=== PATIENT | female | born 1955 | race Caucasian/White ===

== ENCOUNTER 2022-04-23 13:18 | Emergency (ER) | payer MEDICARE, SELFPAY ==
--- NOTE | ~2022-04-23 | XR_ITS ---
Indication: Pain, evaluate for fracture EXAMINATION: Lumbar spine and thoracic spine. Comparison chest film dated 05/12/2019 2 views of the thoracic spine demonstrate degenerative change. Most noted in the mid thoracic region. Kyphosis is created. No convincing evidence for an acute compression injury. Correlation however needs to be made clinically. Note is made of a prominent right hilar structure of uncertain etiology. Consider chest film to further evaluate 3 views of the lumbar sacral spine demonstrate normal lordosis. There is degeneration in the posterior elements likely present at L4-5 and L5-S1. Loss of disc height at L5-S1. The other disc and vertebral heights are fairly well-preserved here. No listhesis or compression injury is seen. XR/XR thoracic spine 3V IMPRESSION: Some degeneration in the lower lumbar sacral spine. No listhesis or compression injury. Moderate degeneration in the mid thoracic spine with kyphosis created. No convincing evidence of acute compression injury. Note is made of a prominent right hilar structure. Recommend PA and lateral films of the chest to directly compare to previous chest study
--- NOTE | ~2022-04-23 | XR_ITS ---
Indication: Pain, evaluate for fracture EXAMINATION: Lumbar spine and thoracic spine. Comparison chest film dated 05/12/2019 2 views of the thoracic spine demonstrate degenerative change. Most noted in the mid thoracic region. Kyphosis is created. No convincing evidence for an acute compression injury. Correlation however needs to be made clinically. Note is made of a prominent right hilar structure of uncertain etiology. Consider chest film to further evaluate 3 views of the lumbar sacral spine demonstrate normal lordosis. There is degeneration in the posterior elements likely present at L4-5 and L5-S1. Loss of disc height at L5-S1. The other disc and vertebral heights are fairly well-preserved here. No listhesis or compression injury is seen. XR/XR lumbar spine 2-3V IMPRESSION: Some degeneration in the lower lumbar sacral spine. No listhesis or compression injury. Moderate degeneration in the mid thoracic spine with kyphosis created. No convincing evidence of acute compression injury. Note is made of a prominent right hilar structure. Recommend PA and lateral films of the chest to directly compare to previous chest study
[2022-04-23 13:30] VITALS: BP 148/95; BP 149/106; PULSE 110; PULSE 95; RESP 16; TEMP 37.3; O2SAT 97; O2SAT 98; BMI 31.2
--- NOTE | 2022-04-23 14:25 | ED_ITS ---
HPI - General Adult General Chief complaint: Back Pain/Injury Stated complaint: BACK PAIN, COVID + Time Seen by Provider: 04/23/22 13:27 Source: patient Mode of arrival: ambulatory Limitations: no limitations History of Present Illness HPI narrative: 67-year-old female with history of remission lung cancer and recent COVID positive as of Tuesday presents to ED for back pain. Patient states she was helping her mother who fell off the bed and while trying to car pick up driver her mother she heard a crack in her back. Patient states since then having pain on ambulation. Patient denies any blunt trauma to the back, falling to the ground, or hitting head. Patient denies any abdominal pain, nausea, vomiting, flank pain, fever, chills. Patient states no dysuria or hematuria. Patient states back pain is worse on movement. Patient denies any chest pain, shortness of breath, pleurisy, leg swelling, calf pain, coughing up blood, weakness, dizziness, or passing out Related Data Previous Rx's Medication Instructions Recorded cyclobenzaprine 10 mg tablet 10 mg PO TID PRN muscle spasm 7 04/23/22 days #21 tabs ketorolac 10 mg tablet 10 mg PO QID PRN pain 5 days #20 04/23/22 tabs prednisone 20 mg tablet 40 mg PO DAILY 5 days #10 tabs 04/23/22 Allergies Allergy/AdvReac Type Severity Reaction Status Date / Time ciprofloxacin Allergy Unknown Verified 12/28/17 00:00 No Known Allergies Allergy Unverified 05/22/20 15:15 [No Known Allergies*] Review of Systems Review of Systems: Back pain Yes all other systems are reviewed and are negative PMFSH Social History Social History Advance Directives: No Advance Directives Information Provided: No Physical Exam ED Vital Signs: Vital Signs - 24 hr 04/23/22 13:30 Temperature 99.1 F Pulse Rate 95 Respiratory Rate 16 Blood Pressure 148/95 H Pulse Oximetry 97 Oxygen Delivery Method Room Air BMI result Body Mass Index 31.2 Const General: cooperative, healthy appearing, comfortable, no acute distress, well developed, alert, awake and Physically active Orientation/consciousness: oriented to time and patient oriented x3 HENMT Head: Yes normal to inspection, Yes No palpable skull fracture present, Yes normocephalic, Yes atraumatic and No abrasion Eyes General: appearance normal, both eyes and all related structures Neck Neck: Yes normal visual inspection, Yes full ROM, Yes no lymphadenopathy, Yes no meningeal signs, Yes trachea midline, Yes supple, No anterior neck swelling and No tender Chest Chest palpation & inspection: normal inspection of the chest and normal palpation of entire chest wall Resp Effort & Inspection: normal respiratory effort and able to speak in complete sentences Auscultation: clear to auscultation bilaterally Cardio Jugular venous distension: no JVD Heart sounds: S1 normal heart sound present and S2 normal heart sound present GI Inspection: Yes normal to inspection and No abdominal wall ecchymosis Palpation (GI): Soft to palpation, not firm, nontender, no guarding and not rigid General: No CVA tenderness and Yes no CVA tenderness Back/Spine/Pelvis Back: no CVA tenderness, No CVA tenderness and back tenderness (thoracic tenderness on palpation. ) Skin General skin exam: no rashes or lesions noted and elasticity normal Neuro General: oriented to time, patient oriented x3, gait normal, no meningeal signs and CN's II-XI intact bilaterally Cranial nerves: Yes CN's II-XII intact bilaterally Extrem General: Yes normal to inspection and Yes full ROM Psych Appearance: grossly normal, well kempt and not disheveled Course Course Course Narrative: Due to history of breast cancer in the past was sent for x-ray to make sure there is no spine fracture and spine Mets. Patient states her cancer was remission but has not follow-up with the cancer doctor and for years due to lack of insurance Reevaluation(s) Reevaluation #1: X-ray negative for fractures. Negative for mental status of the spine. Patient is safe for discharge. Patient given copy of x-ray which included lungs with said right hilliar structure. Time: 15:40 Medical Decision Making [facility] Narrative Medical decision making narrative: Back sprain Discharge Plan Discharge Clinical Impression: Back strain Patient Disposition: Home, Self-Care Instructions: Low Back Strain (ED) Additional Instructions: X-rays came back negative for fractures. Please follow-up with the primary care provider. Return to the ED immediately for any urinary/bowel incontinence, chest pain, shortness of breath, coughing up blood, chest pain on inspiration, dysuria, hematuria, abdominal pain, flank pain, fever, chills, paralysis of lower extremities, tingling, or any other concerning symptoms. Prescriptions: New prednisone 20 mg tablet 40 mg PO DAILY 5 Days Qty: 10 0RF ketorolac 10 mg tablet 10 mg PO QID PRN (Reason: pain) 5 Days Qty: 20 0RF Rx Instructions: patient received 30mg IM toradol in the ED cyclobenzaprine 10 mg tablet 10 mg PO TID PRN (Reason: muscle spasm) 7 Days Qty: 21 0RF Rx Instructions: side effect is drowsiness. Do not take at work or while driving. Stand Alone Forms: Work/School Release Discharge Date/Time: 04/23/22 16:11 Print Language: Georgian
[2022-04-23] MEDS: oxyCODONE HCl Immed Release 5 MG TABLET PO (14:27)
[2022-04-23] MEDS: Ketorolac Tromethamine 30 MG/ML VIAL IM (14:28)
== END 2022-04-23 16:11 | disposition home or self-care (01) ==
PROVIDERS: Emergency Provider Student in an Organized Health Care Education/Training Program
DX: U07.1 COVID-19 (principal); M54.50 Low back pain, unspecified; M54.6 Pain in thoracic spine
CPT/HCPCS: 72072; 72100; 96372; 99282; 99284; J1885

== ENCOUNTER 2023-06-07 12:52 | Inpatient (IN) | payer MEDICARE, SELFPAY ==
--- NOTE | ~2023-06-07 | CT_ITS ---
EXAMINATION: CT ANGIOGRAM OF THE CHEST WITH AND WITHOUT CONTRAST (CT PULMONARY ANGIOGRAM FOR PE) CLINICAL INFORMATION: Reason for Exam SOB, history of lobectomy and lung CA, rule out PE COMPARISON: 12/20/2018. TECHNIQUE: Prior to contrast administration, noncontrast localization images were obtained. Subsequently, multidetector volumetric imaging was performed from the thoracic inlet to below the diaphragms following the administration of 130 mL Omnipaque 350 intravenous contrast. No contrast reaction reported Sagittal, coronal, and MIP oblique sagittal reformatted images were obtained on the CT workstation, uploaded to PACS, and reviewed. This CT examination was performed using dose optimization techniques as appropriate, variously including the following: *Automated exposure control *Adjustment of mA and/or kV according to patient size (this includes techniques or standardized protocols for targeted exams where dose is matched to indication/reason for exam; i.e. extremities or head) *Use of iterative reconstruction technique Total exam dose-length product 461 mGy-cm FINDINGS: QUALITY OF STUDY/CONTRAST BOLUS: Satisfactory. PULMONARY ARTERIES: No pulmonary emboli. THORACIC AORTA: The ascending aorta is dilated up to 4.3 cm LUNG: There is upper lobe predominant emphysematous change. There is minimal scarring at the lung bases. There is no active infiltrate. PLEURA: No pleural effusion or pneumothorax. MEDIASTINUM: Normal heart size. No pericardial effusion. No hilar or mediastinal lymphadenopathy. No evidence of septal bowing or right heart strain. CORONARY ARTERY CALCIFICATION: None visualized on this study. CHEST WALL/AXILLA: No axillary or internal mammary lymphadenopathy. OSSEOUS STRUCTURES: No acute or suspicious osseous abnormality. UPPER ABDOMEN: The liver is of diminished attenuation. No reflux of contrast into the hepatic veins to suggest elevated right heart pressures. CT/CT angio chest PE protocol IMPRESSION: No evidence for pulmonary embolism. Ascending aortic dilatation up to 4.3 cm. Emphysema. Fatty infiltration of the liver. VTE: Negative.
--- NOTE | ~2023-06-07 | XR_ITS ---
EXAMINATION: XR CHEST CLINICAL INFORMATION: Chest pain and shortness of breath COMPARISON: TECHNIQUE: Frontal view of the chest was obtained. FINDINGS: No significant abnormality is noted involving the heart, lungs, mediastinum, bony thorax or soft tissues. XR/XR chest 1V IMPRESSION: No acute process or interval change
--- NOTE | 2023-06-07 12:54 | ED.GENADULT ---
HPI - General Adult General Chief complaint: Dyspnea Stated complaint: Diff breathing/UTI Time Seen by Provider: 06/07/23 23:46 Source: patient Mode of arrival: ambulatory Limitations: no limitations History of Present Illness HPI narrative: A 68-year-old female came in for evaluation of shortness of breath, chest heaviness, coughing with phlegm, subjective fever, and chills. Patient was exposed to a sick contact with similar symptoms. Patient also been having dysuria and frequency urination. Related Data Previous Rx's Medication Instructions Recorded cyclobenzaprine 10 mg tablet 10 mg PO TID PRN muscle spasm 7 04/23/22 days #21 tabs ketorolac 10 mg tablet 10 mg PO QID PRN pain 5 days #20 04/23/22 tabs prednisone 20 mg tablet 40 mg (2 x 20 mg) PO DAILY 5 days 04/23/22 #10 tabs Allergies Allergy/AdvReac Type Severity Reaction Status Date / Time ciprofloxacin Allergy Unknown Unknown Verified 06/07/23 12:54 Review of Systems Review of Systems: All other systems are reviewed and are negative Constitutional: Reports as per HPI and Reports no additional constitutional complaints Eyes: Reports as per HPI and Reports no additional eye complaints Reports system reviewed and no additional complaints, except as documented Cardiovascular: Reports as per HPI and Reports no additional cardiovascular complaints Respiratory: Reports as per HPI and Reports no additional respiratory complaints Gastrointestinal: Reports as per HPI and Reports no additional gastrointestinal complaints Genitourinary: Reports no additional female genitourinary complaints Musculoskeletal: Reports no additional musculoskeletal complaints Skin/Breast: Reports system reviewed and no additional complaints, except as docu Psychiatric: Reports no additional psychiatric complaints Endocrine: Reports no additional endocrine complaints Hematologic/Lymphatic: Reports no additional hematologic/lymphatic complaints Allergic/Immunologic: Reports no additional allergic/immunologic complaints Reports system reviewed and no additional complaints, except as documented and Reports Abnormal speech present [facility] Social History Social History Advance Directives: No Advance Directives Information Provided: No Physical Exam ED Vital Signs: Vital Signs - 24 hr 06/07/23 12:55 06/07/23 19:38 06/08/23 01:28 Temperature 98.0 F 98.3 F 97.9 F Pulse Rate 96 99 108 H Respiratory Rate 22 H 22 H 17 Blood Pressure 134/96 H 148/108 H 145/97 H Pulse Oximetry 99 94 90 L Oxygen Delivery Method Room Air Room Air Room Air BMI result Body Mass Index 30.3 Vital signs have been reviewed and appear to be correct. Blood pressure elevated. Heart rate normal. Respiratory rate normal. Temperature normal. Oxygen saturation normal. Appearance: Alert. Oriented X3. No acute distress. Head: Normal external exam. Normocephalic. Atraumatic. No Vazquez signs noted. No raccoon eyes noted Eyes: PERRLA. EOMI. Conjunctiva and sclera normal. Eyelids normal. ENT: TM's Normal. Pharynx normal. Uvula midline. Moist mucous membranes. No trismus noted. No drooling noted. No muffled voice noted. Neck: Normal inspection. Neck supple. FROM. No adenopathy. Thyroid Normal. No meningeal signs. No neck mass noted. CVS: Normal heart rate and rhythm. Heart sound normal. No murmurs noted. Pulses normal throughout. Respiratory: No respiratory distress. Painless inspiration. Breath sounds normal. No wheezes/rales/rhonchi noted. Chest nontender. No accessory muscle usage noted or decreased air movement noted. Abdomen: Soft and nontender. Bowel sounds normal in all 4 quadrants. No distention noted. No organomegaly noted. No visible injury noted. Back: No CVA tenderness. Full range of motion noted. Skin: Skin warm and dry. Normal skin color. Normal skin turgor. No rashes/lesions/lacerations noted. Extremities: No lower extremity edema. Extremities exhibit normal range of motion. Extremities nontender. Neuro: Oriented X 3. Cranial nerve exam: II-XII are grossly intact No motor deficit. No sensory deficit. Reflexes normal. Course Course Course Narrative: This is an RME: Additional HPI, ROS, PE not included below will be deferred to primary provider. 68 y o female PMH lung cancer s/p lobectomy 7 years ago presenting for difficulty breathing x3 days. Feels like its settling in my chest . +Sick contacts. Reporting subjective fever, chills, chest pain described as heavy and R flank pain. Increased urinary frequency and dysuria. Plan -- UA, viral testing, labs Reeval 1937- elevated white blood cell count, patient states she feels worse. No urine yet. This could be viral. Reevaluation(s) Reevaluation #1: 68-year-old female came in with dyspnea, CP, urinary tract symptoms found to have leukocytosis of 19,000 and meet criteria for SIRS. 1. Patient received ceftriaxone for UTI. 2. Awaiting for CTA to rule out PE case signed out to Dr. Downey to check on result. -CT scan for pulmonary embolism is negative for PE -Dr. Farrell recommends admission for UTI sepsis. -discussed the patient with Dr. Bronson, patient being admitted. Time: 01:51 Medications Administered Discontinued Medications Generic Name Dose Route Start Last Admin Trade Name Freq PRN Reason Stop Dose Admin Albuterol Sulfate 2.5 mg 06/08/23 00:22 06/08/23 01:03 Albuterol Sulfate (0.083%) 2.5 Mg/3 Ml Vial.Neb INHALE 06/08/23 00:23 2.5 mg ONCE ONE Administration Ceftriaxone Sodium 1 gm/ 50 mls @ 100 mls/hr 06/07/23 23:56 06/08/23 01:21 Sodium Chloride IV 06/08/23 00:25 Infused ONCE ONE Infusion Sodium Chloride 1,000 mls @ 999 mls/hr 06/08/23 00:09 06/08/23 01:21 Ns IV 06/08/23 01:09 Infused .Q1H1M ONE Infusion Iohexol 130 ml 06/08/23 01:14 06/08/23 01:16 Iohexol 350 Mg/Ml 150 Ml Infus..Btl IV 06/08/23 01:15 130 ml ONCE ONE Administration Methylprednisolone Sodium Succinate 125 mg 06/07/23 23:56 06/08/23 00:19 Methylprednisolone Sod Succ 125 Mg/2 Ml Vial IVPUSH 06/07/23 23:57 125 mg ONCE ONE Administration Medical Decision Making Differential Diagnosis Differential Diagnoses: The differential diagnosis associated with the presentation includes (Pneumonia, pneumothorax, pleural effusion, CHF, ACS, pulmonary embolism, UTI, pyelonephritis.) Admission/Observation Consideration of admission/observation: Escalation of care including admission/observation considered Lab Data MDM Lab Attestation statement: I reviewed the patient's lab results. 06/07/23 13:11 06/07/23 13:11 Labs: Lab Results 06/07/23 06/07/23 06/08/23 Range/Units 13:11 20:24 01:19 WBC 19.5 H (4.8-10.8) X10*3/uL RBC 5.13 (4.20-5.50) X10*6/uL Hgb 15.2 (12.0-16.0) g/dl Hct 45.4 (37.0-47.0) % MCV 88.5 (80.0-98.0) fL MCH 29.6 (27.0-33.0) pg MCHC 33.5 (31.0-35.0) g/dl RDW 13.6 (11.0-16.0) % Plt Count 269 (160-400) X10*3/uL MPV 9.9 (9.4-12.3) fL Immature Gran % (Auto) 0.4 (0.0-0.4) % Neut % (Auto) 77.9 H (45-73) % Lymph % (Auto) 13.5 L (20-40) % Carver % (Auto) 7.4 (2-11) % Eos % (Auto) 0.6 (0-4) % Baso % (Auto) 0.2 (0-2) % Lymph # (Auto) 2.6 (1.2-4.9) X10*3/uL Carver # (Auto) 1.4 H (0.1-1.2) X10*3/uL Eos # (Auto) 0.1 (0.0-0.4) X10*3/uL Baso # (Auto) 0.0 (0.0-0.2) X10*3/uL Abs Immat Gran (auto) 0.08 H (0.00-0.03) X10*3/uL Absolute Neuts (auto) 15.2 H (2.0-8.3) x10*3/uL Absolute Nucleated RBC 0.000 (0.0-0.012) X10*3/uL Nucleated RBC % (auto) 0.0 (0.0-0.2) /100WBC Sodium 138 (135-145) mmol/L Potassium 3.7 (3.3-5.1) mmol/L Chloride 104 (96-108) mmol/L Carbon Dioxide 25 (22-29) mmol/L Anion Gap 13 (12-20) BUN 10 (9-16) mg/dL Creatinine 0.80 (0.5-1.4) mg/dL Estim Creat Clear Calc 60.5 Estimated GFR > 60 Random Glucose 96 (60-115) mg/dL Lactic Acid 3.4 H* (0.5-2.0) mmol/L Calcium 10.0 (8.4-10.2) mg/dL Magnesium 2.1 (1.6-2.6) mg/dL Total Bilirubin 0.6 (0.0-1.0) mg/dL AST 19 (5-31) U/L ALT 24 (0-31) U/L Alkaline Phosphatase 87 (39-117) U/L Troponin I High Sens < 2.7 < 2.7 (<3.5-17.0) ng/L B-Natriuretic Peptide 26 (<100) pg/mL Total Protein 7.6 (6.5-8.0) g/dL Albumin 4.6 (3.5-5.0) g/dL Urine Color Yellow Urine Appearance Clear Urine pH 6.5 (5.0-9.0) Ur Specific [place] <= 1.005 (1.005-1.025) Urine Protein Negative (Neg-Trace) mg/dL Urine Glucose (UA) Negative (Negative) mg/dL Urine Ketones Negative (Negative) mg/dL Urine Blood Negative (Negative) Urine Nitrite Positive H (Negative) Ur Leukocyte Esterase Moderate (2+) H (Negative) Urine RBC 0-2 (0-2) /HPF Urine WBC 11-20 H (0-5) /HPF Ur Squamous Epith Cells 0-2 (0-2) /HPF Urine Bacteria 4+ (None Seen) Hyaline Casts 0-2 (0-2) /LPF COVID-19 (LEDY) Negative (Negative) COVID-19 Clin Com See Note Independent Interpretation I performed an independent interpretation of an: Plain X-Ray (Chest: No acute process.) Radiology Impression Discussion of test interpretation with radiology: I have reviewed the radiologist's reading. Critical Care Time Critical Care Time Critical Care Time: Yes Total Critical Care Time: 30 Attestation: I have personally provided critical care time. Time includes review of lab data, radiology results, discussion with consultants, and monitoring for potential decompensation. Intervention performed as documented. Discharge Plan Discharge Clinical Impression: Acute dyspnea, Acute UTI Patient Disposition: Admitted As Inpatient Prescriptions: No Action prednisone 20 mg tablet 40 mg PO DAILY 5 Days Qty: 10 0RF ketorolac 10 mg tablet 10 mg PO QID PRN (Reason: pain) 5 Days Qty: 20 0RF Rx Instructions: patient received 30mg IM toradol in the ED cyclobenzaprine 10 mg tablet 10 mg PO TID PRN (Reason: muscle spasm) 7 Days Qty: 21 0RF Rx Instructions: side effect is drowsiness. Do not take at work or while driving.
[2023-06-07 12:55] VITALS: BP 134/96; PULSE 96; RESP 22; TEMP 36.7; O2SAT 99; BMI 30.3
--- NOTE | 2023-06-07 12:57 | ECG_ITS ---
Test Reason : CP/SOB Blood Pressure : / mmHG Vent. Rate : 093 BPM Atrial Rate : 093 BPM P-R Int : 156 ms QRS Dur : 070 ms QT Int : 350 ms P-R-T Axes : 063 074 046 degrees QTc Int : 435 ms Normal sinus rhythm Low voltage QRS Abnormal ECG When compared with ECG of 25-MAR-2018 11:11, No significant change was found Referred By: Elizabeth Garcia Electronically Signed By:IGNACIO VIDES
[2023-06-07 13:16] LABS: MANUAL DIFF FLAG NO
[2023-06-07 13:19] LABS: Basophils Percent Auto 0.2 % (0-2); Eosinophils Absolute Auto 0.1 X10*3/uL (0.0-0.4); Eosinophils Percent Auto 0.6 % (0-4); Hematocrit 45.4 % (37.0-47.0); Hemoglobin 15.2 g/dl (12.0-16.0); Imm Gran Abs Auto 0.08 X10*3/uL (0.00-0.03); Imm Gran Pct Auto 0.4 % (0.0-0.4); Lymphocytes Absolute Auto 2.6 X10*3/uL (1.2-4.9); Lymphocytes Percent Auto 13.5 % (20-40); Mean Corpuscular HGB Conc 33.5 g/dl (31.0-35.0); Mean Corpuscular Hemoglobin 29.6 pg (27.0-33.0); Mean Corpuscular Volume 88.5 fL (80.0-98.0); Mean Platelet Volume 9.9 fL (9.4-12.3); Monocytes Absolute Auto 1.4 X10*3/uL (0.1-1.2); Monocytes Percent Auto 7.4 % (2-11); Neutrophils Absolute Auto 15.2 x10*3/uL (2.0-8.3); Neutrophils Percent Auto 77.9 % (45-73); Platelet Count 269 X10*3/uL (160-400); Red Blood Count 5.13 X10*6/uL (4.20-5.50); Red Cell Distribution Width 13.6 % (11.0-16.0); White Blood Count 19.5 X10*3/uL (4.8-10.8)
[2023-06-07 13:34] LABS: Alanine Aminotransferase 24 U/L (0-31); Albumin Level 4.6 g/dL (3.5-5.0); Alkaline Phosphatase 87 U/L (39-117); Anion Gap 13 (12-20); Aspartate Amino Transferase 19 U/L (5-31); Bilirubin Total 0.6 mg/dL (0.0-1.0); Blood Urea Nitrogen 10 mg/dL (9-16); Carbon Dioxide 25 mmol/L (22-29); Chloride 104 mmol/L (96-108); Creatinine Clr Calc Pharmacy 60.5; Estimated Glomerular Filt Rate > 60; Glucose Random 96 mg/dL (60-115); Magnesium 2.1 mg/dL (1.6-2.6); Potassium 3.7 mmol/L (3.3-5.1); Sodium 138 mmol/L (135-145); Total Protein 7.6 g/dL (6.5-8.0)
[2023-06-07 13:36] LABS: COVID-19 Test Negative (Negative); IDNOW Serial# 08D9AD1C
[2023-06-07 13:38] LABS: B Type Natriuretic Peptide 26 pg/mL (<100)
[2023-06-07 13:41] LABS: Troponin-I High Sensitivity < 2.7 ng/L (<3.5-17.0)
[2023-06-07 19:38] VITALS: BP 148/108; PULSE 99; RESP 22; TEMP 36.8; O2SAT 94
[2023-06-07 20:41] LABS: Appearance Urine Clear; Color Urine Yellow; Glucose Urine UA Negative (Negative); Leukocyte Esterase Urine Moderate (2+) (Negative); Nitrite Urine Positive (Negative); PH 6.5 (5.0-9.0); Specific Gravity - Urine <= 1.005 (1.005-1.025); UMIC TRIGGER UACC YES; Urine Blood Negative (Negative); Urine Ketones Negative (Negative); Urine Protein Negative (Neg-Trace)
[2023-06-07 20:46] LABS: Bacteria Urine 4+ (None Seen); Hyaline Casts Urine 0-2 /LPF (0-2); RBC Urine 0-2 /HPF (0-2); Squamous Epithelial Cell Urine 0-2 /HPF (0-2); UACC Culture Trigger YES
[2023-06-07 21:02] LABS: Troponin-I High Sensitivity < 2.7 ng/L (<3.5-17.0)
[2023-06-08] VITALS (8 sets, daily range): BP systolic 119–163; BP diastolic 64–97; PULSE 56–111; RESP 16–20; TEMP 36.1–36.6; O2SAT 90–97; BMI 30.6
[2023-06-08] MEDS: methylPREDNISolone Sod Succ 125 MG/2 ML VIAL IVPUSH (00:19)
[2023-06-08] MEDS: cefTRIAXone sodium 1 GM in 0.9 % Sodium Chloride 50 ML IV ×2 (00:21→20:34)
[2023-06-08] MEDS: 0.9 % Sodium Chloride 1,000 ML 999 ML IV (00:23)
[2023-06-08] MEDS: Albuterol Sulfate (0.083%) 2.5 MG/3 ML VIAL.NEB INHALE (01:03)
[2023-06-08 01:49] LABS: Lactic Acid 3.4 mmol/L (0.5-2.0)
--- NOTE | 2023-06-08 03:07 | PM.IMHP ---
History of Present Illness Date of Service: 06/08/23 Chief Complaint: shortness of , right flank pain 68 yo F with past medical history of COPD, GERD, she is an ex-smoker,?she was treated for?cancer of?right lung?s/p partial resection in Apr [address]Laki Wolfe followed by Chemo by Dr. Noah Gardiner .?She presented today with shortnes of breath, cough, fever and chills, right flank pain and mild dysuria. Work up shows UTI, WBC of 19 K, lactic acid of 3.4, CXR, CTA of chest show no acute finding. Review of Systems Review of Systems: Gen: no fever Resp: no sob, no cough CV: no chest, no ROJO, no leg edema GI: No n/v, no abd pain Neuro: No confusion Yes all other systems are reviewed and are negative [facility]LY [facility] Medical History Post tonsillectomy secondary hemorrhage Tubal ligation evaluation Kidney stone Obesity Osteoporosis Mixed hyperlipidemia Low vitamin D level History of lung cancer Female genuine stress incontinence Depression GERD (gastroesophageal reflux disease) History of smoking COPD (chronic obstructive pulmonary disease) Pertinent family history: Mother: Alcoholism; Diabetes mellitus type II; Hypertension Father: Alcoholism; [place] - Myocardial infarction; Stroke Sister: Alcoholism; Cancer of colon; Cancer of ovary Brother: Alcoholism Surgical History History of cholecystectomy Meds Allergies Allergy/AdvReac Type Severity Reaction Status Date / Time ciprofloxacin Allergy Unknown Unknown Verified 06/07/23 12:54 Home Medications Medication Instructions Recorded Confirmed Last Taken Type Trelegy Ellipta 200 mg PO ONCE 06/08/23 06/08/23 06/07/23 History Physical Exam Vital Signs and Narrative: Vital Signs: Last Vital Signs Temp 97.9 F 06/08/23 01:28 Pulse 108 H 06/08/23 01:28 Resp 17 06/08/23 01:28 BP 145/97 H 06/08/23 01:28 Pulse Ox 90 L 06/08/23 01:28 O2 Del Method Room Air 06/08/23 01:28 BMI result Body Mass Index 30.3 Results Labs 06/07/23 13:11 06/07/23 13:11 Labs: Laboratory Results - last 24 hr 06/07/23 06/07/23 06/08/23 13:11 20:24 01:19 MCV 88.5 MCH 29.6 MCHC 33.5 RDW 13.6 Plt Count 269 MPV 9.9 Immature Gran % (Auto) 0.4 Neut % (Auto) 77.9 H Lymph % (Auto) 13.5 L [place] % (Auto) 7.4 Eos % (Auto) 0.6 Baso % (Auto) 0.2 Lymph # (Auto) 2.6 [place] # (Auto) 1.4 H Eos # (Auto) 0.1 Baso # (Auto) 0.0 Abs Immat Gran (auto) 0.08 H Absolute Neuts (auto) 15.2 H Absolute Nucleated RBC 0.000 Nucleated RBC % (auto) 0.0 Anion Gap 13 Estim Creat Clear Calc 60.5 Estimated GFR > 60 Random Glucose 96 Lactic Acid 3.4 H* Calcium 10.0 Magnesium 2.1 Total Bilirubin 0.6 AST 19 ALT 24 Alkaline Phosphatase 87 B-Natriuretic Peptide 26 Total Protein 7.6 Albumin 4.6 Urine Color Yellow Urine Appearance Clear Urine pH 6.5 Ur Specific [place] <= 1.005 Urine Protein Negative Urine Glucose (UA) Negative Urine Ketones Negative Urine Blood Negative Urine Nitrite Positive H Ur Leukocyte Esterase Moderate (2+) H Urine RBC 0-2 Urine WBC 11-20 H Ur Squamous Epith Cells 0-2 Urine Bacteria 4+ Hyaline Casts 0-2 COVID-19 (LEDY) Negative COVID-19 Clin Com See Note Imaging Radiologist's Impressions: Impressions Chest X-Ray 06/07/23 13:20 IMPRESSION: No acute process or interval change Chest CTA 06/08/23 01:05 IMPRESSION: No evidence for pulmonary embolism. Ascending aortic dilatation up to 4.3 cm. Emphysema. Fatty infiltration of the liver. VTE: Negative. Assessment and Plan (1) Acute UTI: Status: Acute (2) Acute dyspnea: Status: Acute (3) Sepsis: Status: Acute (4) COPD (chronic obstructive pulmonary disease): Status: Inactive Plan 68 yo F with past medical history of COPD, GERD, she is an ex-smoker,?she was treated for?cancer of?right lung?in April 2016 at [facility],?reports having partial?lung removed in April.?She presented today with shortnes of breath, cough, fever and chills, right flank pain and mild dysuria. Work up shows UTI, WBC of 19 K, lactic acid of 3.4, CXR, CTA of chest show no acute finding. Sesis d/t UTI--Continue Ceftriaxone, started 06/08, follow culture Aute lactic acidosis d/t sepsis, IVF and repeat level COPD exacerbaton -bronchodilators by Neb, got IV solumedrol 125 mg in ED, continue on Prednisone 20 daily DVT prophylaxis: Lovenox Full code: Admit for at least 2 midnights for management of sepsis with IV antibiotic. Time Spent With Patient Time: Total time managing care of this patient today ____ minutes. Quality Stroke Does the patient have a stroke diagnosis?: No VTE Prior VTE?: No VTE Risk Level:: Medical - moderate - high VTE Device Contraindication: Treatment Not Indicated VTE Drug Contraindication: N/A - Med Ordered
[2023-06-08 03:23] LABS: Reflex Lactate? Lactic Acid Added
[2023-06-08] MEDS: Enoxaparin Sodium 40 MG/0.4 ML SYRINGE SUBCUT (04:10)
[2023-06-08 04:24] LABS: ~Lactic Acid-LAB USE ONLY 2.8 mmol/L (0.5-2.0)
[2023-06-08 04:31] LABS: Cancel Lactic Acid Canceled
[2023-06-08 05:49] LABS: Reflex Lactate? 2 Y
[2023-06-08] MEDS: Acetaminophen 325 MG TABLET 650 MG PO (06:29)
[2023-06-08 06:52] LABS: ~Lactic Acid-LAB USE ONLY 2.6 mmol/L (0.5-2.0)
[2023-06-08] MEDS: Albuterol/Iprat 2.5/0.5MG 3 ML AMPUL.NEB INHALE ×2 (08:01→11:51)
--- NOTE | 2023-06-08 08:39 | PHA.MEDREC ---
Pharmacy Consult ? Medication Reconciliation Pharmacy has completed the medication reconciliation.
[2023-06-08] MEDS: 0.9 % Sodium Chloride Flush 3 ML SYRINGE IVFLUSH ×3 (09:55→23:32)
--- NOTE | 2023-06-08 11:28 | MHC.CM.PN ---
pt lives with and dgter and 3 grand children pt is independent has own ride home dc plan home no services
[2023-06-08] MEDS: predniSONE 20 MG TABLET PO (11:30)
[2023-06-08] MEDS: Ipratropium Bromide 0.5 MG/2.5 ML SOLUTION INHALE ×2 (16:08→21:42)
[2023-06-08] MEDS: Magnesium Hydrox/Alum Hydrox 30 ML ORAL.SUSP PO (20:47)
[2023-06-09] VITALS (9 sets, daily range): BP systolic 118–152; BP diastolic 58–94; PULSE 72–96; RESP 16–18; TEMP 36.1–36.7; O2SAT 94–97
[2023-06-09 06:38] LABS: Hematocrit 42.3 % (37.0-47.0); Hemoglobin 14.4 g/dl (12.0-16.0); Mean Corpuscular Hemoglobin 29.6 pg (27.0-33.0); Mean Platelet Volume 10.2 fL (9.4-12.3); Platelet Count 315 X10*3/uL (160-400); Red Blood Count 4.86 X10*6/uL (4.20-5.50); White Blood Count 22.2 X10*3/uL (4.8-10.8)
[2023-06-09] MEDS: Fluticasone/Umeclidinium/Vilanterol 200/62.5/25 BLST.W.DEV 1 PUFF INHALE (07:35)
[2023-06-09] MEDS: Enoxaparin Sodium 40 MG/0.4 ML SYRINGE SUBCUT (08:46)
[2023-06-09] MEDS: predniSONE 20 MG TABLET PO (08:46)
[2023-06-09] MEDS: 0.9 % Sodium Chloride Flush 3 ML SYRINGE IVFLUSH ×3 (08:47→19:59)
[2023-06-09] MEDS: Acetaminophen 325 MG TABLET 650 MG PO (10:29)
--- NOTE | 2023-06-09 12:13 | HO.PM.IMPN ---
Subjective Subjective Date of Service: 06/09/23 Interval History: uti/sepsis Review of Systems right flank pain Physical Exam Vital Signs: Vital Signs: Last Vital Signs Temp 98.1 F 06/09/23 07:36 Pulse 78 06/09/23 11:33 Resp 16 06/09/23 11:33 BP 136/86 06/09/23 07:36 Pulse Ox 97 06/09/23 07:36 O2 Del Method Room Air 06/09/23 07:36 BMI result Body Mass Index 30.6 Appearance: Alert.? Oriented X3.? not in distress.? cvs: [id number], [id number] , no murmur res: clear to auscultation ,no rhonchii or wheezing abd: no rebound or guarding ,nt, bs present. -flank pain seems improving ext pulses present , no cyanosis . neuro: axo3 , nonfocal. Objective Data Active Medications Acetaminophen (Acetaminophen 325 Mg Tablet) 650 mg PO Q6H PRN PRN Reason: Pain, Mild (Pain Scale 1-3) Last Admin: 06/09/23 10:29 Dose: 650 mg Documented By: DOMINGO Al Hydroxide/Mg Hydroxide (Magnesium Hydrox/Alum Hydrox 30 Ml Oral.Susp) 30 ml PO Q4H PRN PRN Reason: Heartburn/Nausea Last Admin: 06/08/23 20:47 Dose: 30 ml Documented By: MACIEJ Cyclobenzaprine HCl (Cyclobenzaprine Hcl 10 Mg Tablet) 10 mg PO TID PRN PRN Reason: muscle spasm Enoxaparin Sodium (Enoxaparin Sodium 40 Mg/0.4 Ml Syringe) 40 mg SUBCUT DAILY [facility] Last Admin: 06/09/23 08:46 Dose: 40 mg Documented By: DOMINGO Fluticasone/Umeclidinium/Vilanterol (Fluticasone/Umeclidinium/Vilanterol 200/62.5/25 Blst.W.Dev) 1 puff INHALE RDAILY [facility] Last Admin: 06/09/23 07:35 Dose: 1 puff Documented By: CARIDAD Ceftriaxone Sodium 2 gm/ (Sodium Chloride) 50 mls @ 100 mls/hr IV Q24H [facility] Ipratropium [place] (Ipratropium [place] 0.5 Mg/2.5 Ml Solution) 0.5 mg INHALE RQ4H WHILE AWAKE [facility] Last Admin: 06/09/23 11:30 Dose: 0.5 mg Documented By: CARIDAD Ipratropium [place] (Ipratropium [place] 0.5 Mg/2.5 Ml Solution) 0.5 mg INHALE Q3H PRN PRN Reason: sob Magnesium Hydroxide (Milk Of Magnesia 30 Ml Oral.Susp) 30 ml PO DAILY PRN PRN Reason: Constipation Ondansetron HCl (Ondansetron Hcl 4 Mg/2 Ml Vial) 4 mg IVPUSH Q8H PRN PRN Reason: Nausea and Vomiting Prednisone (Prednisone 20 Mg Tablet) 20 mg PO DAILY [facility] Last Admin: 06/09/23 08:46 Dose: 20 mg Documented By: DOMINGO Sodium Chloride (0.9 % Sodium Chloride Flush 3 Ml Syringe) 3 ml IVFLUSH QSHIFT [facility] Last Admin: 06/09/23 08:47 Dose: 3 ml Documented By: DOMINGO Labs 06/09/23 05:58 06/07/23 13:11 Labs: Laboratory Results - last 24 hr 06/09/23 05:58 MCV 87.0 MCH 29.6 MCHC 34.0 RDW 14.0 Plt Count 315 MPV 10.2 Absolute Nucleated RBC 0.000 Nucleated RBC % (auto) 0.0 Hold Green Top See Note Microbiology Microbiology Results: Microbiology 06/07/23 Unknown Urine Culture - Final Urine clean catch - Urine ramsey top Escherichia coli 06/08/23 01:26 Blood Culture - Preliminary Blood - Venous No growth after 24 hours. 06/08/23 01:19 Blood Culture - Preliminary Blood - Venous No growth after 24 hours. Assessment and Plan (1) Acute UTI: Status: Acute (2) Sepsis: Status: Acute Plan 68 yo F with past medical history of COPD, GERD, she is an ex-smoker,?she was treated for?cancer of?right lung?in April [address] [facility],?reports having partial?lung removed in April.?She presented today with shortnes of breath, cough, fever and chills, right flank pain and mild dysuria. Work up shows UTI, WBC of 19 K, lactic acid of 3.4, CXR, CTA of chest show no acute finding. Sepsis d/t UTI--Continue Ceftriaxone, started 06/08. leucocytosis trending up-? due to steriod use contributing no fevers , blood culture neg@24hrs. Acute lactic acidosis d/t sepsis, received fluids -improving COPD exacerbaton -bronchodilators by Neb, on Prednisone 20 daily DVT prophylaxis: Lovenox Full code inpatient need:Sepsis d/t UTI-need iv antibiotics ,blood cultures need to be 48hrs negative . Time Spent With Patient Time: Total time managing care of this patient today ____ minutes. Quality Stroke Does the patient have a stroke diagnosis?: No VTE Prior VTE?: No VTE Risk Level:: Medical - moderate - high VTE Device Contraindication: Treatment Not Indicated VTE Drug Contraindication: N/A - Med Ordered
[2023-06-10 00:16] VITALS: BP 142/90; PULSE 80; RESP 16; TEMP 36.1; O2SAT 93
[2023-06-10 07:43] VITALS: PULSE 87; RESP 18; O2SAT 95
[2023-06-10 07:54] VITALS: BP 140/82; PULSE 85; RESP 16; TEMP 36.7; O2SAT 98
[2023-06-10] MEDS: 0.9 % Sodium Chloride Flush 3 ML SYRINGE IVFLUSH (09:00)
[2023-06-10] MEDS: Enoxaparin Sodium 40 MG/0.4 ML SYRINGE SUBCUT (09:00)
[2023-06-10 11:40] VITALS: PULSE 71; RESP 18; O2SAT 98
--- NOTE | 2023-06-10 13:49 | PM.DS ---
DS: Providers Provider Date of Service: 06/10/23 Date of admission: 06/08/23 03:30 Date of discharge: 06/10/23 Primary care physician: Unknown Physician Attending physician on discharge: Kasia Alegre Discharging clinician: Kasia Alegre DS: Diagnosis Discharge Diagnosis (1) Acute UTI: Status: Acute (2) Sepsis: Status: Acute DS: Summary Hospital Course Hospital Course: HPI:68 yo F with past medical history of COPD, GERD, she is an ex-smoker,?she was treated for?cancer of?right lung?s/p partial resection in Apr [address]Laki Wolfe followed by Chemo by Dr. Noah Gardiner .?She presented today with shortnes of breath, cough, fever and chills, right flank pain and mild dysuria. Work up shows UTI, WBC of 19 K, lactic acid of 3.4, CXR, CTA of chest show no acute finding. Hospital course: Patient came for dysuria and flank pain [id number] for sepsis secondary to UTI/possible pyelonephritis-started on IV antibiotic on blood cultures sent. Patient fever improved and leukocytosis improving. Blood culture negative@48hrs -patient seems to be improved, switched to p.o. antibiotics. Please complete the course of p.o. Ceftin for 9 days . plan: Complete course of Ceftin 500 mg p.o. b.i.d. for 9 days. Above management discussed the patient detail and she understand in agreement with the above plan, time spent 50 minute. Time Spent with Patient Time attestation: Total time managing care of this patient today ____ minutes. Discharge coordination time: Greater than 30 minutes Quality: Safe Use of Opioids Does Pt have an Active Cancer Diagnosis on the Problem List?: No Quality: Stroke Does the patient have a stroke diagnosis?: No Physical Exam Vital Signs: Vital Signs: Last Vital Signs Temp 98.1 F 06/10/23 07:54 Pulse 71 06/10/23 11:40 Resp 18 06/10/23 11:40 BP 140/82 H 06/10/23 07:54 Pulse Ox 98 06/10/23 07:54 O2 Del Method Room Air 06/10/23 07:54 BMI result Body Mass Index 30.6 Appearance: Alert.? Oriented X3.? not in distress.? cvs: [id number], [id number] , no murmur res: clear to auscultation ,no rhonchii or wheezing abd: no rebound or guarding ,nt, bs present. -flank pain seems improving ext pulses present , no cyanosis . neuro: axo3 , nonfocal. DS: Data Data Completed and Pending Labs on day of discharge: Laboratory Results - last 24 hr 06/10/23 07:53 WBC 12.6 H RBC 5.13 Hgb 15.1 Hct 44.5 MCV 86.7 MCH 29.4 MCHC 33.9 RDW 13.7 Plt Count 359 MPV 10.1 Absolute Nucleated RBC 0.000 Nucleated RBC % (auto) 0.0 Hold Green Top See Note Preliminary micro results at discharge 06/08/23 01:26 Blood Culture - Preliminary Blood - Venous No growth after 48 hours. 06/08/23 01:19 Blood Culture - Preliminary Blood - Venous No growth after 48 hours. Imaging Chest x-ray: Radiologist's impression: ITS Impressions Chest X-Ray 06/07/23 13:20 IMPRESSION: No acute process or interval change Chest CTA 06/08/23 01:05 IMPRESSION: No evidence for pulmonary embolism. Ascending aortic dilatation up to 4.3 cm. Emphysema. Fatty infiltration of the liver. VTE: Negative. Discharge Plan Discharge Anticipated Discharge Date/Time: 06/10/23 13:41 Patient Disposition: Home, Self-Care Discharge Diagnosis: uti/pyelonephritis Referrals: Physician,Unknown J [Primary Care Provider] - 1 Week Discharge Medications: New cefuroxime axetil 500 mg tablet 500 mg PO BID Qty: 18 0RF Continued Trelegy Ellipta 200-62.5-25 mcg Blister With Device 1 inh INHALATION DAILY Discharge Orders: Discharge Order (Routine); Ordered 06/10/23 Ordered By: Kasia Alegre Diet: Advance to usual diet Activity on Discharge: As tolerated Stand Alone Forms: Patient Portal Discharge page Care Plan Goals: Patient came for dysuria and flank pain [id number] for sepsis secondary to UTI/possible pyelonephritis-started on IV antibiotic on blood cultures sent. Patient fever improved and leukocytosis improving. Blood culture negative@48hrs -patient seems to be improved, switched to p.o. antibiotics. Please complete the course of p.o. Ceftin for 9 days . Health Concerns: as above. Plan of Treatment: as above. Assessment: as above.
--- NOTE | 2023-06-10 14:19 | MHC.CM.PN ---
pt dcd home no servies ordered
== END 2023-06-10 14:34 | disposition home or self-care (01) | DRG 872 ==
LOC: HO.ED 06-08 02:49 → HO.EDOVER 06-08 03:35 → HO.S3 06-08 04:32
PROVIDERS: Emergency Medicine; Physician Assistant; Admitting Provider Internal Medicine; Emergency Provider Emergency Medicine; Visit Provider Internal Medicine
DX: A41.9 Sepsis, unspecified organism (principal); N39.0 Urinary tract infection, site not specified; E87.21 Acute metabolic acidosis; Z20.822 Contact with and (suspected) exposure to COVID-19; Z90.2 Acquired absence of lung [part of]; Z85.118 Personal history of other malignant neoplasm of bronchus and lung; Z87.891 Personal history of nicotine dependence; Z79.899 Other long term (current) drug therapy
CPT/HCPCS: 36415; 71045; 71275; 80053; 81001; 83605; 83735; 83880; 84484; 85025; 85027; 87040; 87086; 87088; 87186; 87635; 93005; 99285; J0696; J1650; J2930; Q9967

== ENCOUNTER → 2023-06-08 03:30 | Outpatient (BNV) | payer MEDICARE, SELFPAY | PROVIDERS: Admitting Provider Internal Medicine; Emergency Provider Emergency Medicine; Visit Provider Internal Medicine | DX: A41.9 Sepsis, unspecified organism (principal); N39.0 Urinary tract infection, site not specified | CPT/HCPCS: 99223; 99232; 99239 ==

== ENCOUNTER 2023-06-14 13:46 | Emergency (ER) | payer MEDICARE, SELFPAY ==
[2023-06-14 15:45] VITALS: BP 120/87; PULSE 119; RESP 17; TEMP 36.6; O2SAT 94; BMI 29.0
--- NOTE | 2023-06-14 15:48 | ED_ITS ---
HPI - General Adult General Chief complaint: General Medical Stated complaint: uti Time Seen by Provider: 06/14/23 22:54 Source: patient Mode of arrival: EMS Limitations: no limitations History of Present Illness HPI narrative: Patient is 68 years old with past medical history COPD, GERD, , ex-smoker,?she was treated for?cancer of?right lung?s/p partial resection comes as she was not feeling well no fever no vomiting /nausea just discharged from here on 06/10 with same patient started coughing since yesterday with body aches malaise no fever + chills Related Data Home Medications Medication Instructions Recorded Confirmed fluticasone fur. 200 mcg-umeclid 1 inh inhalation DAILY 06/08/23 06/08/23 62.5 mcg-vilant 25 mcg inhalat.powder (Trelegy Ellipta) Previous Rx's Medication Instructions Recorded cefuroxime axetil 500 mg tablet 500 mg PO BID #18 tabs 06/10/23 benzonatate 200 mg capsule 200 mg PO TID PRN cough #30 caps 06/15/23 Allergies Allergy/AdvReac Type Severity Reaction Status Date / Time ciprofloxacin Allergy Unknown Unknown Verified 06/07/23 12:54 Review of Systems 2 Review of Systems: Yes all other systems are reviewed and are negative PMFSH Past Medical History Medical History Post tonsillectomy secondary hemorrhage Tubal ligation evaluation Kidney stone Obesity Osteoporosis Mixed hyperlipidemia Low vitamin D level History of lung cancer Female genuine stress incontinence Depression GERD (gastroesophageal reflux disease) History of smoking COPD (chronic obstructive pulmonary disease) Surgical History History of cholecystectomy Social History Social History Household Members: Spouse Housing: Apartment Do you presently have visiting nurse or other home services: No Unable to assess alcohol history related to: Unknown Patient Tobacco Use Status: Former Tobacco user Smoked in Last 30 Days: No e-Cigarette/Vaping Use: Never Used Use of substances other than those prescribed or required for medical reasons: No Advance Directives: No Advance Directives Information Provided: No service: No Physical Exam ED Vital Signs: Vital Signs - 24 hr 06/14/23 15:45 06/14/23 20:44 06/14/23 22:48 Temperature 97.9 F 97.6 F 97.4 F Pulse Rate 119 H 106 H 113 H Respiratory Rate 17 20 21 H Blood Pressure 120/87 107/74 129/97 H Pulse Oximetry 94 97 98 Oxygen Delivery Method Room Air Room Air Room Air 06/14/23 23:02 06/14/23 23:47 06/15/23 00:46 Temperature 97.4 F 98.5 F Pulse Rate 96 91 Respiratory Rate 20 19 20 Blood Pressure 122/91 H 129/92 H Pulse Oximetry 96 94 Oxygen Delivery Method Room Air Room Air 06/15/23 01:15 Temperature 98.2 F Pulse Rate 92 Respiratory Rate 21 H Blood Pressure 129/91 H Pulse Oximetry 96 Oxygen Delivery Method Room Air BMI result Body Mass Index 29.0 Appearance: Alert. Oriented X3. No acute distress. Eyes: PERRLA, No Nystagmus ENT: Pharynx normal. Oral Mucosa moist Neck: Normal inspection. Neck supple. CVS: Normal heart rate and rhythm. Pulses normal. Respiratory: No respiratory distress. Equal air entry bilateral, no wheezing/rales/rhonchi Abdomen: Soft and nontender. Bowel sounds are present, no mass palpable, no CVA tenderness Skin: Skin warm and dry. Normal skin color. Normal skin turgor. Extremities: No lower extremity edema. No calf tenderness Neuro: Oriented X 3. No motor deficit. No sensory deficit.No cerebellar signs , cranial nerves II-XII intact Course Course Course Narrative: This is an RME: Additional HPI, ROS, PE not included below will be deferred to primary provider. 68-year-old female came in for evaluation of body aches, weakness This is a 66-oed[age]-female, with past medical history of COPD, GERD, she is an ex-smoker,?she was treated for?cancer of?right lung?s/p partial resection in [place] [address] Haylie Wolfe followed by Chemo by Dr. Noah Gardiner, presenting to the emergency department with chills, diaphoresis, headache, lightheadedness x2 days. Patient also endorsing diarrhea which occurred today. Patient was seen here and was admitted last week for urosepsis, she has been taking Ceftin but reporting not feeling any better. Patient pale, tachycardic at 119, patient is afebrile. Plan: Labs, UA, chest x-ray, EKG, blood cultures, lactic, further ER evaluation needed. Medications Administered Discontinued Medications Generic Name Dose Route Start Last Admin Trade Name Kirill PRN Reason Stop Dose Admin Sodium Chloride 1,000 mls @ 999 mls/hr 06/14/23 23:15 06/15/23 01:36 Ns IV 06/15/23 00:15 Infused .Q1H1M ONE Infusion Ceftriaxone Sodium 1 gm/ 50 mls @ 100 mls/hr 06/14/23 23:18 06/15/23 01:36 Sodium Chloride IV 06/14/23 23:47 Infused ONCE ONE Infusion Medical Decision Making Medical Decision Making [facility] Narrative: Patient with recent cough and recent UTI E coli in the urine on Ceftin comes here for not feeling well and body aches and cough noted to be COVID positive saturating 96% on room air will discharge patient home cough syrup advised to continue antibiotics Differential Diagnosis Differential Diagnoses: The differential diagnosis associated with the presentation includes UTI/bacteremia/atypical infection/COVID/pneumonia Lab Data [facility] Lab Attestation statement: I reviewed the patient's lab results. 06/14/23 16:13 06/14/23 16:13 Labs: Lab Results 06/14/23 06/14/23 06/14/23 Range/Units 16:13 16:14 16:17 WBC 16.6 H (4.8-10.8) X10*3/uL RBC 5.76 H (4.20-5.50) X10*6/uL Hgb 17.0 H (12.0-16.0) g/dl Hct 49.6 H (37.0-47.0) % MCV 86.1 (80.0-98.0) fL MCH 29.5 (27.0-33.0) pg MCHC 34.3 (31.0-35.0) g/dl RDW 13.8 (11.0-16.0) % Plt Count 293 (160-400) X10*3/uL MPV 9.7 (9.4-12.3) fL Immature Gran % (Auto) 2.9 H (0.0-0.4) % Neut % (Auto) 78.2 H (45-73) % Lymph % (Auto) 6.8 L (20-40) % [place] % (Auto) 11.6 H (2-11) % Eos % (Auto) 0.1 (0-4) % Baso % (Auto) 0.4 (0-2) % Lymph # (Auto) 1.1 L (1.2-4.9) X10*3/uL [place] # (Auto) 1.9 H (0.1-1.2) X10*3/uL Eos # (Auto) 0.0 (0.0-0.4) X10*3/uL Baso # (Auto) 0.1 (0.0-0.2) X10*3/uL Abs Immat Gran (auto) 0.48 H (0.00-0.03) X10*3/uL Absolute Neuts (auto) 13.0 H (2.0-8.3) x10*3/uL Absolute Nucleated RBC 0.000 (0.0-0.012) X10*3/uL Nucleated RBC % (auto) 0.0 (0.0-0.2) /100WBC Smear Tech's Comments VERIFIED Sodium 135 (135-145) mmol/L Potassium 3.8 (3.3-5.1) mmol/L Chloride 104 (96-108) mmol/L Carbon Dioxide 18 L (22-29) mmol/L Anion Gap 17 (12-20) BUN 12 (9-16) mg/dL Creatinine 0.82 (0.5-1.4) mg/dL Estim Creat Clear Calc 57.8 Estimated GFR > 60 Random Glucose 132 H (60-115) mg/dL Lactic Acid 1.5 (0.5-2.0) mmol/L Calcium 9.8 (8.4-10.2) mg/dL Total Bilirubin 0.5 (0.0-1.0) mg/dL Direct Bilirubin 0.2 (0.0-0.5) mg/dL AST 26 (5-31) U/L ALT 47 H (0-31) U/L Alkaline Phosphatase 91 (39-117) U/L Troponin I High Sens < 2.7 (<3.5-17.0) ng/L Total Protein 7.9 (6.5-8.0) g/dL Albumin 4.7 (3.5-5.0) g/dL Urine Color Dark Yellow Urine Appearance Clear Urine pH 6.5 (5.0-9.0) Ur Specific [place] 1.025 (1.005-1.025) Urine Protein 30 (1+) H (Neg-Trace) mg/dL Urine Glucose (UA) Negative (Negative) mg/dL Urine Ketones 15 (Negative) mg/dL Urine Blood Negative (Negative) Urine Nitrite Negative (Negative) Ur Leukocyte Esterase Trace H (Negative) Urine RBC 3-5 H (0-2) /HPF Urine WBC 0-5 (0-5) /HPF Ur Squamous Epith Cells 0-2 (0-2) /HPF Urine Bacteria None Seen (None Seen) Hyaline Casts 0-2 (0-2) /LPF COVID-19 (LEDY) (Negative) COVID-19 Clin Com 06/15/23 Range/Units 00:17 WBC (4.8-10.8) X10*3/uL RBC (4.20-5.50) X10*6/uL Hgb (12.0-16.0) g/dl Hct (37.0-47.0) % MCV (80.0-98.0) fL MCH (27.0-33.0) pg MCHC (31.0-35.0) g/dl RDW (11.0-16.0) % Plt Count (160-400) X10*3/uL MPV (9.4-12.3) fL Immature Gran % (Auto) (0.0-0.4) % Neut % (Auto) (45-73) % Lymph % (Auto) (20-40) % [place] % (Auto) (2-11) % Eos % (Auto) (0-4) % Baso % (Auto) (0-2) % Lymph # (Auto) (1.2-4.9) X10*3/uL [place] # (Auto) (0.1-1.2) X10*3/uL Eos # (Auto) (0.0-0.4) X10*3/uL Baso # (Auto) (0.0-0.2) X10*3/uL Abs Immat Gran (auto) (0.00-0.03) X10*3/uL Absolute Neuts (auto) (2.0-8.3) x10*3/uL Absolute Nucleated RBC (0.0-0.012) X10*3/uL Nucleated RBC % (auto) (0.0-0.2) /100WBC Smear Tech's Comments Sodium (135-145) mmol/L Potassium (3.3-5.1) mmol/L Chloride (96-108) mmol/L Carbon Dioxide (22-29) mmol/L Anion Gap (12-20) BUN (9-16) mg/dL Creatinine (0.5-1.4) mg/dL Estim Creat Clear Calc Estimated GFR Random Glucose (60-115) mg/dL Lactic Acid (0.5-2.0) mmol/L Calcium (8.4-10.2) mg/dL Total Bilirubin (0.0-1.0) mg/dL Direct Bilirubin (0.0-0.5) mg/dL AST (5-31) U/L ALT (0-31) U/L Alkaline Phosphatase (39-117) U/L Troponin I High Sens (<3.5-17.0) ng/L Total Protein (6.5-8.0) g/dL Albumin (3.5-5.0) g/dL Urine Color Urine Appearance Urine pH (5.0-9.0) Ur Specific [place] (1.005-1.025) Urine Protein (Neg-Trace) mg/dL Urine Glucose (UA) (Negative) mg/dL Urine Ketones (Negative) mg/dL Urine Blood (Negative) Urine Nitrite (Negative) Ur Leukocyte Esterase (Negative) Urine RBC (0-2) /HPF Urine WBC (0-5) /HPF Ur Squamous Epith Cells (0-2) /HPF Urine Bacteria (None Seen) Hyaline Casts (0-2) /LPF COVID-19 (LEDY) Positive A (Negative) COVID-19 Clin Com See Note Discharge Plan Discharge Clinical Impression: COVID-19, Acute UTI Patient Disposition: Home, Self-Care Instructions: Urinary Tract Infection in Women (ED), COVID-19 (Coronavirus Disease 2019) (ED) Additional Instructions: Drink plenty of fluids Cough drops as prescribed Continue antibiotic as prescribed by provider Prescriptions: New benzonatate 200 mg capsule 200 mg PO TID PRN (Reason: cough) Qty: 30 0RF No Action Trelegy Ellipta 200-62.5-25 mcg Blister With Device 1 inh INHALATION DAILY cefuroxime axetil 500 mg tablet 500 mg PO BID Qty: 18 0RF
[2023-06-14 16:09] VITALS: BP 153/101; PULSE 120; O2SAT 98
[2023-06-14 16:42] LABS: Alanine Aminotransferase 47 U/L (0-31); Albumin Level 4.7 g/dL (3.5-5.0); Alkaline Phosphatase 91 U/L (39-117); Anion Gap 17 (12-20); Aspartate Amino Transferase 26 U/L (5-31); Bilirubin Direct 0.2 mg/dL (0.0-0.5); Bilirubin Total 0.5 mg/dL (0.0-1.0); Blood Urea Nitrogen 12 mg/dL (9-16); Calcium 9.8 mg/dL (8.4-10.2); Carbon Dioxide 18 mmol/L (22-29); Chloride 104 mmol/L (96-108); Creatinine Clr Calc Pharmacy 57.8; Estimated Glomerular Filt Rate > 60; Glucose Random 132 mg/dL (60-115); Potassium 3.8 mmol/L (3.3-5.1); Sodium 135 mmol/L (135-145); Total Protein 7.9 g/dL (6.5-8.0)
[2023-06-14 20:44] VITALS: BP 107/74; PULSE 106; RESP 20; TEMP 36.4; O2SAT 97
--- NOTE | 2023-06-14 22:25 | MHC.EDTECH ---
Second set of blood cultures obtained and sent to lab, and patient sent back to waiting area.
[2023-06-14 22:48] VITALS: BP 129/97; PULSE 113; RESP 21; TEMP 36.3; O2SAT 98
[2023-06-14 23:02] VITALS: RESP 20
[2023-06-14 23:47] VITALS: BP 122/91; PULSE 96; RESP 19; TEMP 36.3; O2SAT 96
[2023-06-15 00:46] VITALS: BP 129/92; PULSE 91; RESP 20; TEMP 36.9; O2SAT 94
[2023-06-15 01:15] VITALS: BP 129/91; PULSE 92; RESP 21; TEMP 36.8; O2SAT 96
--- NOTE | 2023-06-15 01:30 | PC.NURSE ---
2330 This RN assumed care [id number] This RN initiated SEPSIS alert due to meeting multiple criteria (WBC: 16.6, RR 21) Patient was medicated per MAR Patient COVID+ Patient moved to Room 3 Report given to Hema GONSALES
--- NOTE | 2023-06-15 01:31 | PC.NURSE ---
Pt moved from ED 15 to ED3, due to Covid positive, report taken from Kaela GONSALES.
== END 2023-06-15 02:12 | disposition home or self-care (01) ==
PROVIDERS: Physician Assistant Medical; Emergency Provider Internal Medicine
DX: U07.1 COVID-19 (principal); N39.0 Urinary tract infection, site not specified; R05.9 Cough, unspecified; R00.0 Tachycardia, unspecified; M79.10 Myalgia, unspecified site; R06.02 Shortness of breath; Z87.891 Personal history of nicotine dependence; Z79.899 Other long term (current) drug therapy
CPT/HCPCS: 36415; 71046; 80048; 80076; 81001; 83605; 84484; 85025; 87040; 87635; 93005; 96361; 96374; 99284; 99285; J0696